=== PATIENT | female | born 1960 | race Caucasian/White ===

== ENCOUNTER 2019-09-24 12:41 | Emergency (ER) | payer BC, SELFPAY ==
[2019-09-24 12:50] VITALS: BP 151/70; PULSE 52; RESP 20; TEMP 36.6; O2SAT 99
--- NOTE | 2019-09-24 13:03 | ED.EYEPROB ---
HPI - Eye Problem General Chief complaint: Eye Problems Stated complaint: Can't Get out contact lenses Time Seen by Provider: 09/24/19 12:51 Source: patient and RN notes reviewed Mode of arrival: ambulatory Limitations: no limitations History of Present Illness HPI Narrative: Patient presents today reporting bilateral retained contact lenses. Patient normally wears glasses, but states she put in these new contact lenses this morning as a trial from her eye doctor. She is unable to remove either 1 of them.Denies pain. Reports difficulty seeing out of the right eye. chief complaint: foreign body Related Data Home Medications Medication Instructions Recorded Confirmed alprazolam 0.25 mg PO DIRECTED 09/24/19 09/24/19 amlodipine 5 mg PO DAILY 09/24/19 09/24/19 atenolol 50 mg PO DAILY 09/24/19 09/24/19 pantoprazole 40 mg PO DAILY 09/24/19 09/24/19 pravastatin 20 mg PO DAILY 09/24/19 09/24/19 sertraline 50 mg PO DAILY 09/24/19 09/24/19 topiramate 50 mg PO PRN PRN 09/24/19 09/24/19 trazodone 50 mg PO DAILY 09/24/19 09/24/19 Allergies Allergy/AdvReac Type Severity Reaction Status Date / Time FRANK Inhibitors Allergy Unknown Verified 09/24/19 12:53 Review of Systems Review of Systems: Narrative: CONSTITUTIONAL: Denies body aches, fever, chills, or sweats. EYES: Denies visual changes, redness, or discharge.Retained contact lenses bilaterally ENT: Denies rhinorrhea, congestion, sore throat, or otalgia. CARDIOVASCULAR: Denies chest pain, palpitations, or edema. RESPIRATORY: Denies cough or dyspnea. GASTROINTESTINAL: Denies abdominal pain, nausea, vomiting, or diarrhea. GENITOURINARY: Denies dysuria or hematuria. SKIN: Denies rash, itching, or wounds. MUSCULOSKELETAL: Denies back pain, joint pain, or myalgia. NEUROLOGIC: Denies headache, numbness, tingling, or weakness. PSYCH: Denies depression or anxiety. PMFSH Comments At time of signature, I have reviewed and agree with nursing past medical, surgical, social and family history unless otherwise noted. Please see nursing chart for further information. There is no relevant family history pertinent to the presenting complaint Exam Narrative: Exam Narrative: GENERAL: Well-appearing, well-nourished, and in no acute distress. HEAD: Normocephalic, atraumatic. EYES: EOMI. PERRL. No redness or drainage. Conjunctivae normal. Both contact lenses noted in correct placement. See procedure note for removal. ENT: Mucous membranes pink and moist. NECK: Normal AROM. CHEST: No respiratory distress. EXTREMITIES: Normal range of motion. No edema. SKIN: Warm, dry, no rash. Capillary refill normal. Normal skin turgor. NEURO: No focal deficits. Alert and oriented x3. Gait steady. PSYCH: Normal affect. No signs of depression or anxiety. Course Vital Signs Vital signs: Vital Signs Temperature 97.8 F 09/24/19 12:50 Pulse Rate 52 L 09/24/19 12:50 Respiratory Rate 09/24/19 12:50 Blood Pressure 151/70 H 09/24/19 12:50 Pulse Oximetry 99 09/24/19 12:50 Temperature 97.8 F 09/24/19 12:50 Pulse Rate 52 L 09/24/19 12:50 Respiratory Rate 09/24/19 12:50 Blood Pressure 151/70 H 09/24/19 12:50 Pulse Oximetry 99 09/24/19 12:50 Reviewed. Pt has been instructed to follow up with her PCP regarding her elevated blood pressure today. Procedures FB Removal Eye Foreign Body #1: Foreign Body Removal Date: 09/24/19 Foreign Body Removal Time: 13:03 Time Out performed: Yes Location: eye (L) Topical anesthetic used: tetracaine Foreign body: other (Contact lens) Evidence of corneal penetration: No Technique: irrigation and cotton tip swab Procedure performed under: direct visualization with magnification Patient tolerated procedure: well Foreign Body #2: Foreign Body Removal Date: 09/24/19 Foreign Body Removal Time: 13:04 Time Out performed: Yes Location: eye (R)
== END 2019-09-24 13:05 | disposition home or self-care (01) ==
PROVIDERS: Emergency Provider Nurse Practitioner
DX: T15.91XA Foreign body on external eye, part unspecified, right eye, initial encounter (principal); T15.92XA Foreign body on external eye, part unspecified, left eye, initial encounter; I10 Essential (primary) hypertension; E78.00 Pure hypercholesterolemia, unspecified; K21.9 Gastro-esophageal reflux disease without esophagitis
CPT/HCPCS: 99212; A9270; G0463